=== PATIENT | female | born 1995 | race Caucasian/White ===

== ENCOUNTER → 2025-03-27 14:24 | Outpatient (BNV) | payer BC, SELFPAY | PROVIDERS: Visit Provider Clinical Nurse Specialist Psychiatric/Mental Health | DX: F33.2 Major depressive disorder, recurrent severe without psychotic features (principal); F43.11 Post-traumatic stress disorder, acute; F42.2 Mixed obsessional thoughts and acts; F50.9 Eating disorder, unspecified | CPT/HCPCS: 90791 ==